=== PATIENT | female | born 1995 | race Asian ===

== ENCOUNTER 2018-11-07 21:10 | Emergency (ER) | payer OTHER ==
[~2018-11-07] VITALS: Ht 152.4 cm; Wt 52.2 kg
[2018-11-07 21:41] LABS: ABSOLUTE NEUTROPHILS 8.6 thou/uL (1.4-8.2); BASOPHILS 0.2 % (0.0-2.0); EOSINOPHILS 0.1 % (0.0-3.0); HEMATOCRIT 39.9 % (37.0-47.0); HEMOGLOBIN 13.3 gm/dL (12.0-15.0); LYMPHOCYTES 2.3 % (24.0-44.0); MCH 30.1 pg (26.0-34.0); MCHC 33.3 g/dL (28.0-37.0); MCV 90.5 fL (80.0-100.0); MONOCYTES 2.9 % (1.0-8.0); PLATELET COUNT 198 thou/uL (150-400); POLYS 94.5 % (36.0-66.0); RBC 4.41 mil/uL (4.20-5.00); RDW 12.5 % (10.5-14.5); WBC 9.2 thou/uL (4.0-11.0)
[2018-11-07] MEDS ORDERED: TRIAMCINOLONE A80 G2 TOP (21:47)
[2018-11-07] MEDS ORDERED: ZYRTEC10 M5 PO (21:48)
[2018-11-07 21:59] LABS: CALCIUM 8.6 mg/dL (8.5-10.1); POTASSIUM 3.3 mmol/L (3.5-5.1)
[2018-11-08 00:11] VITALS: BP 81/43
== END 2018-11-08 00:11 | disposition short-term general hospital (02) ==
LOC: ER 21:10
PROVIDERS: Emergency Medicine
DX: L51.1 Stevens-Johnson syndrome (principal)